=== PATIENT | male | born 1975 | race Caucasian/White ===

== ENCOUNTER 2017-06-03 09:03 | Emergency (ER) | payer MEDICAID, OTHER ==
[2017-06-03] MEDS ORDERED: IBUPROFEN 400 MG TABLET PO STA (09:19)
[2017-06-03] MEDS ORDERED: ceFAZolin 1 GM VIAL IM STA (09:19)
[2017-06-03] MEDS ORDERED: ACETAMINOPHEN 325 MG TABLET PO STA (09:19)
--- NOTE | 2017-06-03 09:22 | ED Physician Documentation ---
History of Present Illness - Stated complaint Stated Complaint: RIGHT ARM RED,HEADACHE - Chief complaint Chief Complaint: [place] - Additonal information Additional information: hx from pt 41 male hx DM and HTN - no taking meds states his frined tried to inject meth into his R AC last night and missed now area is red and painful no fever states needle did not break off Review of Systems Constitutional: denies: Fever Skin: reports: Other (skin redness) Musculoskeletal: reports: Extremity pain Immunocompromised: denies: Immunocompromised PD PAST MEDICAL HISTORY - Past Medical History Past Medical History: Yes Endocrine/Autoimmune: Type 2 diabetes - Past Surgical History Past Surgical History: No - Present Medications Home Medications: Ambulatory Orders Medication Instructions Recorded Confirmed Cephalexin [Keflex] 500 mg PO Q6H #28 capsule 06/03/17 Sulfamethox/Trimeth 800/160 1 each PO BID #14 tablet 06/03/17 [Bactrim Ds 800/160] metFORMIN [Glucophage] 500 mg PO BIDWM #30 tablet 06/03/17 - Social History Does the pt smoke?: Yes Smoking Status: Current every day smoker PD ED PE NORMAL - Vitals Vital signs reviewed: Yes (little tachy, not hypotensive, afebrile) - HEENT HEENT: PERRL - Neck Neck: Supple, no meningeal sign - Cardiac Cardiac: RRR (little tachy BP OK) - Respiratory Respiratory: No respiratory distress, Clear bilaterally - Extremities Extremities: Other (approx 6 C 4 inch area of erythema surrounding R AC, no fluctuance, no crepitus, no bullar, no necrosis, painful to touch, MSV intact) - Neuro Neuro: Alert and oriented X 3, No motor deficit, No sensory deficit Results - Vitals Vitals: Vital Signs - 24 hr 06/03/17 09:09 Temperature 37.5 C Heart Rate 110 H Respiratory 16 Rate Blood Pressure 143/95 H O2 Saturation 97 Oxygen O2 Source Room air PD MEDICAL DECISION MAKING - ED course ED course: FSBS 425 - pt states he used to take oral meds, will start on metformin no abscess or FB seen on besdie sono HR noted - pt is afebrile, not hypotensive, has a source for infection, no murmur on exam, and tachycardia could be from pain or meth use as well - at this pt do not think pt is septic - plan to give IM ancef, dc with keflex and bactrim, start metformin and pt to see PMD or come back to see me Thursday for a recheck Departure - Departure Disposition: 01 Home, Self Care Clinical Impression: Hyperglycemia Cellulitis Qualifiers: Site of cellulitis: extremity Site of cellulitis of extremity: upper extremity Laterality: right Qualified Code(s): L03.113 - Cellulitis of right upper limb Condition: Good Instructions: ED Infec Skin Cellulitis Prescriptions: Cephalexin [Keflex] 500 mg PO Q6H #28 capsule metFORMIN [Glucophage] 500 mg PO BIDWM #30 tablet Sulfamethox/Trimeth 800/160 [Bactrim Ds 800/160] 1 each PO BID #14 tablet Comments: Your diabetes is out of control. I have started metformin to help control the blood sugars You will need close follow up with your PMD to recheck blood sugars and adjust medications For the skin infection I have prescribed two antibiotics to cover the possible bacteria that could be causing your infection Especially given the rapid onset of redness, the pain, and your diabetes you absolutely must have a wound check within 48 hr - if you cannot see your PMD come back and see me in the ER Thursday morning. Return to the ER sooner if worse in the mean time May take motrin and tylenol for the pain
[2017-06-03 09:54] VITALS: BP 145/92
== END 2017-06-03 10:06 | disposition home or self-care (01) ==
LOC: ED 09:03
DX: E11.65 Type 2 diabetes mellitus with hyperglycemia (principal); L03.113 Cellulitis of right upper limb; I10 Essential (primary) hypertension; Z79.84 Long term (current) use of oral hypoglycemic drugs
CPT/HCPCS: 96372; 99283; A9270

== ENCOUNTER 2019-07-23 20:52 | Outpatient (CLI) | payer MEDICAID | END 2019-07-23 20:53 | disposition EMS.NT | LOC: EMS 20:52 | PROVIDERS: ATTEND Surgery | DX: I46.9 Cardiac arrest, cause unspecified (principal) | CPT/HCPCS: A0425; A0433 ==

== ENCOUNTER 2019-07-23 21:18 | Emergency (ER) | payer MEDICAID ==
[2019-07-23] MEDS ORDERED: NALOXONE 0.4 MG/ML VIAL ONE ×3 (21:26→21:31)
[2019-07-23] MEDS ORDERED: EPINEPHrine 1 MG/ML AMP ONE ×2 (21:39→22:08)
--- NOTE | 2019-07-23 21:55 | XRAY Report ---
Reason: CPR Procedure Date: 07/23/2019 Accession Number: [id number] / [id number] Procedure: XR - Chest 1 View X-Ray CPT Code: 14446 Final Report FULL RESULT: EXAM: CHEST RADIOGRAPHY EXAM DATE: 07/23/2019 09:48 PM. CLINICAL HISTORY: CPR. Intubated. COMPARISON: None. TECHNIQUE: 1 view. FINDINGS: Lines/Tubes: ET tube about 1 cm from the fuentes.. Lungs/Pleura: Hypoinflated lungs. No focal opacities evident. No right pleural effusion. Left costophrenic angle off the film. No pneumothorax. Mediastinum: Within exam limitations, the cardiomediastinal contour is normal. Other: None. IMPRESSION: 1. Normal heart size and clear lungs. 2. ET tube about 1 cm from the fuentes. RADIA
--- NOTE | 2019-07-23 21:58 | ED Physician Documentation ---
PD HPI CPR - Stated complaint Stated Complaint: CPR - Chief complaint Chief Complaint: Cardiac - History obtained from History obtained from: EMS - History of Present Illness Timing - onset: Unknown Preceding symptoms: Unknown Contributing factors: Diabetes Recently seen: Not recently seen Witnessed: Arrest witnessed Fall: Unknown EMS findings: Unresponsive, Weak pulse, Bradycardia Treatment PSYCHOSOCIAL REHABILITATION COUNSELOR: CPR, Defibrillated, Intubated, Epi, Amiodarone, Sodium Bicarb, IO - Additional information Additional information: BIBA. EMS called for unresponsiveness. Police reportedly were first responders on scene, administered intranasal narcan x 2 doses without apparent response. EMS arrived and found patient in his trailer, unconsious with weak pulses, hypopneic. They administered narcan x 2 doses via LLE IO. On EMS arrival, patient was sinus bradycardia rate in 30s. no response to narcan and patient subsequently became apneic with asystole on monitor. CPR was started. Over the course of further field assessment, treatment, and en route to ED, patient had episodic ROSC but would recurrently lose pulses. On arrival to ED, he has received epinephrine x 8 mg, sodium bicarbonate, amidodarone 300mg then 150mg. He also was given vecuronium when he was intubated. BS in field 386. He again had ROSC en route to ED but lost pulses as medics were arriving and thus CPR being performed on arrival. Review of Systems Unable to obtain: Unresponsive, Intubated PD PAST MEDICAL HISTORY - Past Medical History Past Medical History: Yes Cardiovascular: Hypertension Endocrine/Autoimmune: Type 2 diabetes - Past Surgical History Past Surgical History: No - Present Medications Home Medications: Ambulatory Orders Medication Instructions Recorded Confirmed Cephalexin [Keflex] 500 mg PO Q6H #28 capsule 06/03/17 Sulfamethox/Trimeth 800/160 1 each PO BID #14 tablet 06/03/17 [Bactrim Ds 800/160] metFORMIN [Glucophage] 500 mg PO BIDWM #30 tablet 06/03/17 - Allergies Allergies/Adverse Reactions: Allergies Allergy/AdvReac Type Severity Reaction Status Date / Time Unable to Assess Allergy Verified 07/23/19 22:02 - Social History Does the pt smoke?: Yes Smoking Status: Current every day smoker PD ED PE NORMAL - Vitals Vital signs reviewed: Yes - Abdomen Abdomen: Non distended - Rectal Rectal: Deferred - Extremities Extremities: No edema - Neuro Eye Opening: None Motor: None Verbal: None GCS Score: 3 PD ED PE EXPANDED - General General: Unresponsive, Other (intubated (orotracheal ETT)) - Eyes Eyes: Other (pupils are bilaterally fixed and dilated) - Cardiac Cardiac: Other (CPR in progress) - Respiratory Respiratory: Other (orotracheally intubated, breath sounds are equal with equal / symmetric chest rise) - Derm Derm: Pale, Other (cool extremities but warm core to touch) Results - Vitals Vitals: Vital Signs - 24 hr 07/23/19 07/23/19 07/23/19 21:33 21:45 21:47 Temperature 34.5 C L Heart Rate 132 H 104 H 94 Respiratory 18 18 Rate Blood Pressure 230/140 H 173/114 H O2 Saturation 68 L 07/23/19 07/23/19 07/23/19 21:51 21:53 21:56 Temperature Heart Rate 129 H 120 H Respiratory 15 16 Rate Blood Pressure 95/45 L 214/138 H 200/130 H O2 Saturation 97 82 L 85 L 07/23/19 07/23/19 07/23/19 21:58 22:02 22:05 Temperature Heart Rate 118 H 109 H 105 H Respiratory 18 16 12 Rate Blood Pressure 178/111 H 99/67 87/55 L O2 Saturation 83 L 87 L 85 L 07/23/19 07/23/19 07/23/19 22:06 22:10 22:12 Temperature Heart Rate 106 H 108 H 107 H Respiratory 18 19 18 Rate Blood Pressure 105/81 H 173/108 H 148/96 H O2 Saturation 87 L 85 L 85 L 07/23/19 07/23/19 07/23/19 22:27 22:46 22:51 Temperature 34.3 C L Heart Rate 106 H 107 H 108 H Respiratory 18 18 18 Rate Blood Pressure 156/79 H 133/69 H 151/79 H O2 Saturation 86 L 84 L 86 L 07/23/19 07/23/19 07/23/19 23:17 23:19 23:35 Temperature 34.6 C L 34.7 C L Heart Rate 110 H 91 110 H Respiratory 18 18 Rate Blood Pressure 162/81 H 147/73 H O2 Saturation 90 L 07/23/19 07/24/19 23:53 00:13 Temperature 34.8 C L Heart Rate 112 H 110 H Respiratory 18 Rate Blood Pressure 145/74 H 116/62 O2 Saturation 93 Oxygen O2 Source Mechanical ventilator - Labs Labs: Laboratory Tests 07/23/19 07/23/19 07/23/19 21:56 21:56 21:56 WBC 21.5 H RBC 4.58 L Hgb 13.4 L Hct 43.0 MCV 93.9 MCH 29.3 MCHC 31.2 L RDW 12.7 Plt Count 159 MPV 10.4 Neut # (Auto) Not Reportable Lymph # (Auto) Not Reportable [place] # (Auto) Not Reportable Eos # (Auto) Not Reportable Baso # (Auto) Not Reportable Absolute Nucleated RBC Not Reportable Total Counted 100 Band Neuts % (Manual) 3 Abnorm Lymph % (Manual) 0 Nucleated RBC % Not Reportable Neutrophils # (Manual) 11.8 H Lymphocytes # (Manual) 9.0 H Monocytes # (Manual) 0.4 Eosinophils # (Manual) 0.2 Basophils # (Manual) 0.0 Differential Comment MANUAL DIFFERENTIAL Manual Slide Review Indicated WBC Morphology NORMAL APPEARANCE Platelet Estimate NORMAL (130-450,000) Platelet Morphology NORMAL APPEARANCE RBC Morph Micro Appear NORMAL APPEARANCE Whole Blood INR Bld Gas Analysis Time Sample Site ABG pH ABG pCO2 ABG pO2 ABG HCO3 ABG Total CO2 ABG O2 Saturation ABG Base Excess ABG Hemoglobin ABG Oxyhemoglobin ABG Carboxyhemoglobin ABG Methemoglobin Viral Test Respiration Rate O2 Delivery Device Vent Mode FiO2 Tidal Volume PEEP Sodium 134 L Potassium 3.9 Chloride 99 L Carbon Dioxide 18 L Anion Gap 17.0 H BUN 21 H Creatinine 1.1 Estimated GFR (MDRD) 73 L Glucose 686 H* Lactic Acid Calcium 8.9 Total Bilirubin 0.7 AST 1152 H ALT 798 H Alkaline Phosphatase 149 H Total Creatine Kinase 115 CK-MB (CK-2) 6.2 Troponin I High Sens 83.2 H* Total Protein 5.2 L Albumin 2.6 L Globulin 2.6 Albumin/Globulin Ratio 1.0 Lipase 46 Urine Color Urine Clarity Urine pH Ur Specific [place] Urine Protein Urine Glucose (UA) Urine Ketones Urine Occult Blood Urine Nitrite Urine Bilirubin Urine Urobilinogen Ur Leukocyte Esterase Urine RBC Urine WBC Ur Squamous Epith Cells Urine Bacteria Ur Microscopic Review Urine Culture Comments Urine Opiates Screen Ur Oxycodone Screen Urine Methadone Screen Ur Propoxyphene Screen Ur Barbiturates Screen Ur Tricyclics Screen Ur Phencyclidine Scrn Ur Amphetamine Screen U Methamphetamines Scrn U Benzodiazepines Scrn Urine Cocaine Screen U Cannabinoids Screen Serum Ketones 07/23/19 07/23/19 07/23/19 22:00 22:18 22:28 WBC RBC Hgb Hct MCV MCH MCHC RDW Plt Count MPV Neut # (Auto) Lymph # (Auto) [place] # (Auto) Eos # (Auto) Baso # (Auto) Absolute Nucleated RBC Total Counted Band Neuts % (Manual) Abnorm Lymph % (Manual) Nucleated RBC % Neutrophils # (Manual) Lymphocytes # (Manual) Monocytes # (Manual) Eosinophils # (Manual) Basophils # (Manual) Differential Comment Manual Slide Review WBC Morphology Platelet Estimate Platelet Morphology RBC Morph Micro Appear Whole Blood INR 1.1 Bld Gas Analysis Time 2207 Sample Site LEFT RADIAL ABG pH 7.03 L* ABG pCO2 51 H ABG pO2 172 H* ABG HCO3 13.2 L ABG Total CO2 14.7 L ABG O2 Saturation 98 ABG Base Excess -17.6 L ABG Hemoglobin ABG Oxyhemoglobin ABG Carboxyhemoglobin ABG Methemoglobin Viral Test POSITIVE Respiration Rate 18 O2 Delivery Device VENTILATOR Vent Mode SIMV FiO2 100.00 Tidal Volume 475 PEEP 10 Sodium Potassium Chloride Carbon Dioxide Anion Gap BUN Creatinine Estimated GFR (MDRD) Glucose Lactic Acid Calcium Total Bilirubin AST ALT Alkaline Phosphatase Total Creatine Kinase CK-MB (CK-2) Troponin I High Sens Total Protein Albumin Globulin Albumin/Globulin Ratio Lipase Urine Color YELLOW Urine Clarity CLEAR Urine pH 5.5 Ur Specific [place] 1.025 Urine Protein 30 H Urine Glucose (UA) >=1000 H Urine Ketones NEGATIVE Urine Occult Blood SMALL H Urine Nitrite NEGATIVE Urine Bilirubin NEGATIVE Urine Urobilinogen 0.2 (NORMAL) Ur Leukocyte Esterase NEGATIVE Urine RBC 0-5 Urine WBC 0-3 Ur Squamous Epith Cells NONE SEEN Urine Bacteria None Seen Ur Microscopic Review INDICATED Urine Culture Comments NOT INDICATED Urine Opiates Screen POSITIVE H Ur Oxycodone Screen NEGATIVE Urine Methadone Screen NEGATIVE Ur Propoxyphene Screen NEGATIVE Ur Barbiturates Screen NEGATIVE Ur Tricyclics Screen NEGATIVE Ur Phencyclidine Scrn NEGATIVE Ur Amphetamine Screen POSITIVE H U Methamphetamines Scrn POSITIVE H U Benzodiazepines Scrn NEGATIVE Urine Cocaine Screen NEGATIVE U Cannabinoids Screen NEGATIVE Serum Ketones 07/23/19 07/23/19 07/23/19 23:37 23:37 23:40 WBC RBC Hgb Hct MCV MCH MCHC RDW Plt Count MPV Neut # (Auto) Lymph # (Auto) [place] # (Auto) Eos # (Auto) Baso # (Auto) Absolute Nucleated RBC Total Counted Band Neuts % (Manual) Abnorm Lymph % (Manual) Nucleated RBC % Neutrophils # (Manual) Lymphocytes # (Manual) Monocytes # (Manual) Eosinophils # (Manual) Basophils # (Manual) Differential Comment Manual Slide Review WBC Morphology Platelet Estimate Platelet Morphology RBC Morph Micro Appear Whole Blood INR Bld Gas Analysis Time 0217 0870 Sample Site A-LINE ABG pH 7.22 L ABG pCO2 37 ABG pO2 73 L ABG HCO3 14.7 L ABG Total CO2 15.9 L ABG O2 Saturation 94 ABG Base Excess -12.1 L ABG Hemoglobin 13.7 ABG Oxyhemoglobin 93 L ABG Carboxyhemoglobin 0.5 ABG Methemoglobin 0.4 Viral Test NOT APPLICABLE Respiration Rate 18 O2 Delivery Device VENTILATOR Vent Mode SIMV FiO2 80.00 Tidal Volume 475 PEEP 10 Sodium Potassium Chloride Carbon Dioxide Anion Gap BUN Creatinine Estimated GFR (MDRD) Glucose Lactic Acid 7.5 H* Calcium Total Bilirubin AST ALT Alkaline Phosphatase Total Creatine Kinase CK-MB (CK-2) Troponin I High Sens Total Protein Albumin Globulin Albumin/Globulin Ratio Lipase Urine Color Urine Clarity Urine pH Ur Specific [place] Urine Protein Urine Glucose (UA) Urine Ketones Urine Occult Blood Urine Nitrite Urine Bilirubin Urine Urobilinogen Ur Leukocyte Esterase Urine RBC Urine WBC Ur Squamous Epith Cells Urine Bacteria Ur Microscopic Review Urine Culture Comments Urine Opiates Screen Ur Oxycodone Screen Urine Methadone Screen Ur Propoxyphene Screen Ur Barbiturates Screen Ur Tricyclics Screen Ur Phencyclidine Scrn Ur Amphetamine Screen U Methamphetamines Scrn U Benzodiazepines Scrn Urine Cocaine Screen U Cannabinoids Screen Serum Ketones 07/23/19 23:40 WBC RBC Hgb Hct MCV MCH MCHC RDW Plt Count MPV Neut # (Auto) Lymph # (Auto) [place] # (Auto) Eos # (Auto) Baso # (Auto) Absolute Nucleated RBC Total Counted Band Neuts % (Manual) Abnorm Lymph % (Manual) Nucleated RBC % Neutrophils # (Manual) Lymphocytes # (Manual) Monocytes # (Manual) Eosinophils # (Manual) Basophils # (Manual) Differential Comment Manual Slide Review WBC Morphology Platelet Estimate Platelet Morphology RBC Morph Micro Appear Whole Blood INR Bld Gas Analysis Time Sample Site ABG pH ABG pCO2 ABG pO2 ABG HCO3 ABG Total CO2 ABG O2 Saturation ABG Base Excess ABG Hemoglobin ABG Oxyhemoglobin ABG Carboxyhemoglobin ABG Methemoglobin Viral Test Respiration Rate O2 Delivery Device Vent Mode FiO2 Tidal Volume PEEP Sodium Potassium Chloride Carbon Dioxide Anion Gap BUN Creatinine Estimated GFR (MDRD) Glucose Lactic Acid Calcium Total Bilirubin AST ALT Alkaline Phosphatase Total Creatine Kinase CK-MB (CK-2) Troponin I High Sens Total Protein Albumin Globulin Albumin/Globulin Ratio Lipase Urine Color Urine Clarity Urine pH Ur Specific [place] Urine Protein Urine Glucose (UA) Urine Ketones Urine Occult Blood Urine Nitrite Urine Bilirubin Urine Urobilinogen Ur Leukocyte Esterase Urine RBC Urine WBC Ur Squamous Epith Cells Urine Bacteria Ur Microscopic Review Urine Culture Comments Urine Opiates Screen Ur Oxycodone Screen Urine Methadone Screen Ur Propoxyphene Screen Ur Barbiturates Screen Ur Tricyclics Screen Ur Phencyclidine Scrn Ur Amphetamine Screen U Methamphetamines Scrn U Benzodiazepines Scrn Urine Cocaine Screen U Cannabinoids Screen Serum Ketones NEGATIVE - Rads (name of study) chest xray Radiology: Prelim report reviewed, See rad report repeat cxr (for NGT placement) Radiology: Prelim report reviewed, See rad report, Other (NGT coils back upwards (NGT pulled subsequent to this xray result; NGT was not used)) PD MEDICAL DECISION MAKING - ED course Complexity details: reviewed old records, reviewed results, re-evaluated patient, considered differential ED course: right inguinal CVC placed by Dr. Greenberg. CPR on arrival. On pulse check, no peripheral pulses despite organized, narrow- complex, regular rhythm on monitor. CPR restarted for PEA and epinephrine given. On next pulse check, patient was in ventricular fibrillation and shocked at 200 (biphasic). He subsequently had ROSC. Eventually, he again lost pulses and was given epinpehrine 1 mg and CPR. On pulse check/rhythm check, he was ST and had strong pulses. epinephrine gtt started and he remained stable for remainder of ED stay. D/W Dr. Mcguire, adjustment clerk at [facility], accepts transfer. She requests repeat ABG, methgb, lactate, and insulin (these were ordered/med given). - Critical Care Time(min): 60 Time Includes: Direct patient care, Review records, Reassess patient, Document care, Coordinate care, See progress note Data interpretation: Labs, Pulse ox, ABG, CXR, Cardiac output, See progress note Procedures included in critical care time: See progress note Procedures excluded from critical care time: See progress note Departure - Departure Disposition: 02 Transfer Acute Care Hosp Clinical Impression: Cardiopulmonary arrest with successful resuscitation Condition: Critical Discharge Date/Time: 07/24/19 00:55
[2019-07-23] MEDS: EPINEPHrine 4 MG in DEXTROSE 5% 246 ML IV SCH (22:02)
[2019-07-23] MEDS: NALOXONE 0.4 MG/ML VIAL IVP STA (22:06)
[2019-07-23 22:08] LABS: ABG BASE EXCESS -17.6 mmol/L (-2.0-3.0); ABG HCO3 13.2 mmol/L (22.0-26.0); ABG OXYGEN SATURATION 98 % (94-98); ABG PCO2 51 mmHg (34-45); ABG TCO2 14.7 MMOL/L (21.0-29.0); ALLEN TEST POSITIVE
[2019-07-23 22:08] LABS: BASOPHILS % (AUTO) 0.8 %; HGB - HEMOGLOBIN 13.4 g/dL (14.0-18.0); LYMPHOCYTES % (AUTO) 37.7 %; MEAN CORPUSCULAR HEMOGLOBIN 29.3 pg (27.0-31.0); MEAN CORPUSCULAR HGB CONC 31.2 g/dL (32.0-36.0); MEAN CORPUSCULAR VOLUME 93.9 fL (80.0-94.0); MEAN PLATELET VOLUME 10.4 fL (7.4-11.4); MONOCYTES % (AUTO) 2.9 %; NEUTROPHILS % (AUTO) 51.3 %; PLT - PLATELET COUNT 159 10^3/uL (130-450); RED BLOOD COUNT 4.58 10^6/uL (4.70-6.10); RED CELL DISTRIBUTION WIDTH 12.7 % (12.0-15.0); WHITE BLOOD COUNT 21.5 x10^3/uL (4.8-10.8)
[2019-07-23 22:09] LABS: ABG PH 7.03 (7.35-7.45)
[2019-07-23 22:10] LABS: ABG PO2 172 mmHg (80-100)
[2019-07-23 22:10] LABS: ABNORMAL LYMPHS % (MANUAL) 0 %
--- NOTE | 2019-07-23 22:15 | ED Physician Documentation ---
ED Addendum - Addendum Addendum: 07/23/19 22:[address] Hernandez by placing a central line, I personally placed a right femoral central line, triple-lumen in standard fashion using Seldinger technique. It flushed and marsha well. Also attempted in a line without success. Full sterile precautions were not used because it was during the coding procedure.
[2019-07-23 22:26] LABS: ALBUMIN 2.6 g/dL (3.2-5.5); BILIRUBIN,TOTAL 0.7 mg/dL (0.2-1.0); CALCIUM 8.9 mg/dL (8.5-10.3); CREATININE 1.1 mg/dL (0.6-1.2); TOTAL PROTEIN 5.2 g/dL (6.7-8.2)
[2019-07-23] MEDS: EPINEPHrine 4 MG in DEXTROSE 5% 246 ML IVP STA (22:26)
[2019-07-23 22:30] LABS: BAND NEUTROPHILS % (MANUAL) 3 %; DIFFERENTIAL COMMENT MANUAL DIFFERENTIAL; EOSINOPHILS # (MANUAL) 0.2 10^3/uL (0-0.7); LYMPHOCYTES % (MANUAL) 42 %; MONOCYTES # (MANUAL) 0.4 10^3/uL (0.0-1.0); PLATELET ESTIMATE, MANUAL NORMAL (130-450,000) (NORMAL); PLATELET MORPHOLOGY NORMAL APPEARANCE (NORMAL); RBC MORPHOLOGY (MULTIPLE) NORMAL APPEARANCE (NORMAL)
[2019-07-23 22:31] LABS: MUDS CUTOFF CONCENTRATIONS CUTOFF CONC BELOW:
[2019-07-23 22:32] LABS: BILIRUBIN,URINE NEGATIVE (NEGATIVE); GLUCOSE, URINE (UA) >=1000 mg/dL (NEGATIVE); KETONES,URINE (UA) NEGATIVE (NEGATIVE); LEUKOCYTE ESTERASE, URINE NEGATIVE (NEGATIVE); NITRITE,URINE NEGATIVE (NEGATIVE); OCCULT BLOOD,URINE SMALL (NEGATIVE); PH,URINE 5.5 PH (5.0-7.5); PROTEIN,URINE 30 mg/dL (NEGATIVE); UROBILINOGEN,URINE 0.2 (NORMAL) E.U./dL (NORMAL)
[2019-07-23 22:33] LABS: CREATINE KINASE MB 6.2 ng/mL (0.6-6.3)
[2019-07-23 22:35] LABS: CLARITY,URINE CLEAR (CLEAR)
[2019-07-23 22:38] LABS: BACTERIA,URINE None Seen /HPF (None Seen); RBC,URINE 0-5 /HPF (0-5); SQUAMOUS EPITHELIAL CELL,UR NONE SEEN (<= Few)
[2019-07-23 22:43] LABS: COCAINE SCREEN URINE NEGATIVE (NEGATIVE); METHAMPHETAMINES SCREEN, URINE POSITIVE (NEGATIVE)
[2019-07-23 22:44] LABS: AMPHETAMINE SCREEN,URINE POSITIVE (NEGATIVE); BENZODIAZEPINES SCREEN, URINE NEGATIVE (NEGATIVE); METHADONE SCREEN, URINE NEGATIVE (NEGATIVE); OPIATE SCREEN, URINE POSITIVE (NEGATIVE); OXYCODONE SCREEN, URINE NEGATIVE (NEGATIVE); PROPOXYPHENE SCREEN, URINE NEGATIVE (NEGATIVE); TRICYCLIC ANTIDEPRESSANT,URINE NEGATIVE (NEGATIVE)
[2019-07-23] MEDS: INSULIN REGULAR HUMAN 100 UNIT/1 ML 10 ML MDV IVP STA (23:45)
[2019-07-23 23:52] LABS: ABG BASE EXCESS -12.1 mmol/L (-2.0-3.0); ABG HCO3 14.7 mmol/L (22.0-26.0); ABG OXYGEN SATURATION 94 % (94-98); ABG PCO2 37 mmHg (34-45); ABG PH 7.22 (7.35-7.45); ABG PO2 73 mmHg (80-100); ABG TCO2 15.9 MMOL/L (21.0-29.0)
[2019-07-24] LABS: HEMOGLOBIN TOTAL, ARTERIAL WB 13.7 g/dL (12.0-18.0)
[2019-07-24 00:01] LABS: CARBOXYHEMOGLOBIN ARTERIAL 0.5 % (0-1.5)
[2019-07-24 00:13] VITALS: BP 116/62
--- NOTE | 2019-07-24 00:47 | XRAY Report ---
Reason: confirm NG placement Procedure Date: 07/24/2019 Accession Number: [id number] / [id number] Procedure: XR - Chest 1 View X-Ray CPT Code: 42337 Addended Final Report FULL RESULT: EXAM: CHEST RADIOGRAPHY EXAM DATE: 07/24/2019 12:10 AM. CLINICAL HISTORY: Confirm NG placement. COMPARISON: - - - - - 07/23/2019 9:20 PM. TECHNIQUE: 1 view. FINDINGS: Lungs/Pleura: Mild bibasilar atelectasis or infiltrate. No pleural effusion seen. No pneumothorax. Mediastinum: Within exam limitations, the cardiomediastinal contour is normal. Other: Endotracheal tube tip is 4.8 cm above the funetes. Enteric tube is buckled in the proximal thoracic esophagus. IMPRESSION: 1. Enteric tube buckled in the proximal thoracic esophagus. 2. ETT 4.8 cm above the fuentes. 3. Mild bibasilar atelectasis or infiltrate. RADIA The critical result notification system was initiated by Dr. Jasper Frye at 12:44 AM on 07/24/2019. ADDENDUM: 07/24/19 00:47 The above critical result findings were discussed with nurseJoseph by Dr. Jasper Frye at 12:47 AM on 07/24/2019.
== END 2019-07-24 00:55 | disposition short-term general hospital (02) ==
LOC: EDUNIT# → ED 21:18
DX: I46.9 Cardiac arrest, cause unspecified (principal); I10 Essential (primary) hypertension; E11.9 Type 2 diabetes mellitus without complications; Z79.84 Long term (current) use of oral hypoglycemic drugs; F17.200 Nicotine dependence, unspecified, uncomplicated
CPT/HCPCS: 36415; 36556; 36600; 51702; 80053; 80306; 81001; 82009; 82375; 82550; 82553; 82803; 83605; 83690; 84484; 85025; 85610; 92950; 99291; J1815; 71045; 81003; 85730; 87086; 94002; 94770